=== PATIENT | female | born 1940 | race Caucasian/White ===

== ENCOUNTER 2019-01-26 12:57 | Observation (INO) ==
[2019-01-26 13:51] LABS: Basophils # 0.1 10*3/uL (0.0-0.2); Basophils % 0.9 % (0.0-0.8); Eosinophils # 0.2 10*3/uL (0.0-0.87); Eosinophils % 2.4 % (0.00-10.9); Hematocrit 41.5 VOL% (35.7-47.0); Hemoglobin 13.9 GM/DL (12.0-16.0); Immature Granulocytes % 0.3 %; Immature Granulocytes Absolute 0.02 #; Lymphocytes # 2.9 10*3/uL (1.4-4.0); Lymphocytes % 42.8 % (21.3-54.2); Mean Corpuscular HGB Conc 33.5 GM/DL (32-36); Mean Corpuscular Volume 86.3 FL (87-102); Mean Platelet Volume 10.4 FL (9.6-12.0); Monocytes % 10.1 % (1.7-12.7); Neutrophils % 43.5 % (38.7-73.9); Platelet Count 282 T/CUMM (130-400); Red Blood Count 4.81 MC/CUMM (3.8-5.5); Red Cell Distribution Width 13.2 % (9.3-17.3); White Blood Count 6.7 T/CUMM (4-12)
[2019-01-26 14:11] LABS: Albumin 3.6 G/DL (3.4-5.0); Bilirubin,Total 0.5 MG/DL (0.2-1.0); Calcium 9.1 MG/DL (8.5-10.1); Osmolality,Calculated 276.8 MOS/KG (273-304); Total Protein 8.5 G/DL (6.4-8.3)
[2019-01-26] MEDS ORDERED: KETOROLAC 30 MG/1 ML VIAL IV STA (15:51)
[2019-01-26] MEDS ORDERED: NITROGLYCERIN 2% OINT 1 INCH/GM PACK TOP STA (15:51)
[2019-01-26] MEDS ORDERED: POTASSIUM CHLORIDE 20 MEQ TABLET PO STA (15:51)
[2019-01-26] MEDS ORDERED: ASPIRIN 325 MG TABLET PO STA (15:51)
[2019-01-26] MEDS ORDERED: MORPHINE 4 MG/1 ML VIAL IV STA (15:51)
[2019-01-26] MEDS ORDERED: ONDANSETRON 4 MG/2 ML VIAL IV STA (15:51)
[2019-01-26] MEDS ORDERED: ACETAMINOPHEN 325 MG TABLET PO PRN (17:07)
[2019-01-26] MEDS ORDERED: ONDANSETRON 4 MG/2 ML VIAL IV PRN (17:07)
[2019-01-26] MEDS ORDERED: DEXTROSE 10% 25 GM/250 ML BAG IV PRN (17:08)
[2019-01-26] MEDS ORDERED: GLUCAGON 1 MG VIAL IM PRN (17:08)
[2019-01-26] MEDS ORDERED: SODIUM CHLORIDE 0.45% 500 ML IV ONE (19:20)
[2019-01-26] MEDS ORDERED: ALUM/MAG/SIMETH/LIDO VISC 1:1 30 ML BOTTLE PO ONE (19:25)
[2019-01-26] MEDS: GABAPENTIN 300 MG CAPSULE PO SCH (20:48)
[2019-01-26] MEDS ORDERED: EZETIMIBE 10 MG TABLET PO SCH (21:00)
[2019-01-26] MEDS ORDERED: ASPIRIN EC 81 MG TABLET PO SCH (21:00)
[2019-01-26 22:34] LABS: Troponin I < 0.015 NG/ML (0.00-0.045)
[2019-01-27 05:19] LABS: Calcium 8.5 MG/DL (8.5-10.1); Osmolality,Calculated 283.3 MOS/KG (273-304); Risk Ratio 7.13; VLDL CHOLESTEROL 49.8 MG/DL
[2019-01-27 05:23] LABS: Basophils # 0.1 10*3/uL (0.0-0.2); Eosinophils # 0.3 10*3/uL (0.0-0.87); Hematocrit 36.6 VOL% (35.7-47.0); Immature Granulocytes % 0.2 %; Immature Granulocytes Absolute 0.01 #; Lymphocytes # 2.9 10*3/uL (1.4-4.0); Lymphocytes % 55.8 % (21.3-54.2); Mean Corpuscular HGB Conc 32.8 GM/DL (32-36); Mean Corpuscular Volume 88.6 FL (87-102); Mean Platelet Volume 10.8 FL (9.6-12.0); Monocytes % 11.2 % (1.7-12.7); Neutrophils % 26.8 % (38.7-73.9); Platelet Count 242 T/CUMM (130-400); Red Blood Count 4.13 MC/CUMM (3.8-5.5); Red Cell Distribution Width 13.2 % (9.3-17.3); White Blood Count 5.2 T/CUMM (4-12)
[2019-01-27 05:40] LABS: Band Neutrophils 6 % (0-10); Eosinophils 7 % (0-10); Lymphocytes 53 % (20-55); Platelet Estimate Normal; Segmented Neutrophils 26 % (50-85); Total Cells Counted 100
[2019-01-27] MEDS ORDERED: LEVOTHYROXINE 75 MCG TABLET PO SCH (06:30)
[2019-01-27 06:49] LABS: Apearance,Urine CLEAR (Clear); Bacteria,Urine Occasional /HPF (Few); Bilirubin,Urine Negative (Negative); Blood, Urine Negative (Negative); Glucose,Urine (UA) Negative (Negative); Hyaline Casts,Urine 3 /LPF (0-3); Ketones,Urine Negative (Negative); Mucus,Urine Occasional /LPF (Occasional); Nitrite,Urine Negative (Negative); Protein,Urine Negative; RBC,Urine 2 /HPF (0-4); Squamous Epithelial Cell,Urine Occasional /HPF (0-10); Urine Color Yellow (Yellow); Urine Urobilinogen < 2.0 EU/DL (0.2-1.0); WBC,Urine <1 /HPF (0-6)
[2019-01-27] MEDS: GABAPENTIN 300 MG CAPSULE PO SCH ×2 (08:55→09:10)
[2019-01-27] MEDS ORDERED: hydroCHLOROthiazide 25 MG TABLET PO SCH (09:00)
[2019-01-27] MEDS ORDERED: SERTRALINE 25 MG TABLET PO SCH (09:00)
[2019-01-27] MEDS ORDERED: OXYBUTYNIN XL 15 MG TABLET PO SCH (09:00)
[2019-01-27] MEDS ORDERED: PANTOPRAZOLE 40 MG TABLET PO SCH (09:00)
[2019-01-27] MEDS ORDERED: amLODIPine 10 MG TABLET PO SCH (09:00)
[2019-01-27] MEDS ORDERED: CALCIUM (CARBONATE)/VITAMIN D 600 MG-400 UNIT TABLET PO SCH (09:00)
[2019-01-27] MEDS ORDERED: ACETAMINOPHEN 325 MG/10.15 ML UDCUP PO ONE (10:21)
[2019-01-27] MEDS ORDERED: traMADol 50 MG TABLET PO SCH (10:30)
[2019-01-27 11:28] VITALS: BP 124/47
[2019-01-27] MEDS ORDERED: GABAPENTIN 100 MG CAPSULE PO SCH (15:00)
[2019-01-27] MEDS ORDERED: ROSUVASTATIN 10 MG TABLET PO SCH (21:00)
[2019-01-27] MEDS ORDERED: ACETAMINOPHEN 325 MG/10.15 ML UDCUP PO SCH (21:00)
== END 2019-01-27 13:17 | disposition home or self-care (01) ==
LOC: N.EDINP 12:57 → N.ED 12:57 → SUATTDRO 17:06 → N.2W 18:15 → N.EDINP 18:25
PROVIDERS: ADMIT Internal Medicine; ATTEND Internal Medicine

== ENCOUNTER 2021-05-22 10:54 | Observation (INO) ==
[2021-05-22 12:17] LABS: Basophils % 0.2 % (0.0-0.8); Eosinophils # 0.4 10*3/uL (0.0-0.87); Hematocrit 43.3 VOL% (35.7-47.0); Hemoglobin 14.1 GM/DL (12.0-16.0); Immature Granulocytes % 1.1 %; Immature Granulocytes Absolute 0.14 #; Lymphocytes # 4.2 10*3/uL (1.4-4.0); Lymphocytes % 34.2 % (21.3-54.2); Mean Corpuscular HGB Conc 32.6 GM/DL (32-36); Mean Corpuscular Volume 90.8 FL (87-102); Mean Platelet Volume 9.4 FL (9.6-12.0); Monocytes % 5.6 % (1.7-12.7); Neutrophils % 55.9 % (38.7-73.9); Platelet Count 325 T/CUMM (130-400); Red Blood Count 4.77 MC/CUMM (3.8-5.5); Red Cell Distribution Width 13.2 % (9.3-17.3); White Blood Count 12.3 T/CUMM (4-12)
[2021-05-22 12:18] LABS: Bacteria,Urine Occasional /HPF (Few); Bilirubin,Urine Negative (Negative); Blood, Urine Negative (Negative); Glucose,Urine (UA) Negative (Negative); Ketones,Urine Negative (Negative); Nitrite,Urine Negative (Negative); Protein,Urine 1+ mg/dL (Negative); RBC,Urine 2 /HPF (0-4); Squamous Epithelial Cell,Urine Occasional /HPF (0-10); Urine Appearance Clear (Clear); Urine Color Yellow (Yellow); Urine Urobilinogen 0.2 eU/dL (<2.0)
[2021-05-22 12:35] LABS: Albumin 2.7 G/DL (3.4-5.0); Bilirubin,Total 1.4 MG/DL (0.20-1.00); Calcium 8.5 MG/DL (8.5-10.1); Osmolality,Calculated 285.4 MOS/KG (273-304); Potassium 4.1 MMOL/L (3.5-5.1); Total Protein 7.3 G/DL (6.4-8.2)
[2021-05-22] MEDS ORDERED: ONDANSETRON 4 MG/2 ML VIAL IV STA (14:10)
[2021-05-22] MEDS ORDERED: HYDROmorphone 2 MG/1 ML VIAL IV STA (14:10)
[2021-05-22] MEDS ORDERED: GLUCAGON 1 MG VIAL IM PRN (14:25)
[2021-05-22] MEDS ORDERED: DEXTROSE 10% 250 ML BAG IV PRN (14:35)
[2021-05-22] MEDS ORDERED: HYDROmorphone 1 MG/1 ML SYRINGE IV STA (14:58)
[2021-05-22] MEDS ORDERED: guaiFENesin/DM ER 600-30 MG TABLET PO PRN (15:10)
[2021-05-22] MEDS ORDERED: hydrALAZINE 20 MG/1 ML VIAL IV PRN (16:52)
[2021-05-22] MEDS: SODIUM CHLORIDE 0.45% 1,000 ML IV SCH (17:19)
[2021-05-22 17:30] LABS: Risk Ratio 3.38; Thyroid Stimulating Hormone 11.5 uIU/ml (0.358-3.74); VLDL Cholesterol 56.8 MG/DL
[2021-05-22] MEDS: predniSONE 20 MG TABLET PO SCH (21:23)
[2021-05-22] MEDS: ROSUVASTATIN 10 MG TABLET PO SCH (21:23)
[2021-05-22] MEDS: GABAPENTIN 100 MG CAPSULE PO SCH (21:23)
[2021-05-22] MEDS: EZETIMIBE 10 MG TABLET PO SCH (21:23)
[2021-05-22] MEDS: ASPIRIN EC 81 MG TABLET PO SCH (21:23)
[2021-05-23] MEDS: SODIUM CHLORIDE 0.45% 1,000 ML IV SCH (06:02)
[2021-05-23 06:04] LABS: Basophils % 0.4 % (0.0-0.8); Eosinophils % 0.3 % (0.00-10.9); Hematocrit 39.9 VOL% (35.7-47.0); Immature Granulocytes % 1.2 %; Immature Granulocytes Absolute 0.09 #; Lymphocytes # 1.1 10*3/uL (1.4-4.0); Lymphocytes % 13.5 % (21.3-54.2); Mean Corpuscular HGB Conc 32.6 GM/DL (32-36); Mean Corpuscular Volume 91.3 FL (87-102); Mean Platelet Volume 9.5 FL (9.6-12.0); Monocytes % 1.9 % (1.7-12.7); Neutrophils % 82.7 % (38.7-73.9); Platelet Count 295 T/CUMM (130-400); Red Blood Count 4.37 MC/CUMM (3.8-5.5); Red Cell Distribution Width 13.2 % (9.3-17.3); White Blood Count 7.8 T/CUMM (4-12)
[2021-05-23 06:16] LABS: Albumin 2.2 G/DL (3.4-5.0); Bilirubin,Total 0.4 MG/DL (0.20-1.00); Calcium 8.4 MG/DL (8.5-10.1); Osmolality,Calculated 279.1 MOS/KG (273-304); Potassium 4.7 MMOL/L (3.5-5.1); Total Protein 6.3 G/DL (6.4-8.2)
[2021-05-23 08:33] LABS: Free T4 (Free Thyroxine) 0.99 NG/DL (0.76-1.46)
[2021-05-23] MEDS ORDERED: LEVOTHYROXINE 75 MCG TABLET PO SCH (09:00)
[2021-05-23 09:14] LABS: Hepatitis B Surface Ag Quant < 0.10 Index; Hepatitis B Surface Ag Result Non-Reactive (NonReactive); Hepatitis C Virus Ab Quant 0.06 Index; Hepatitis C Virus Ab Result Non-Reactive (NonReactive)
[2021-05-23] MEDS: predniSONE 20 MG TABLET PO SCH ×2 (10:04→20:48)
[2021-05-23] MEDS: PANTOPRAZOLE 40 MG TABLET PO SCH (10:05)
[2021-05-23] MEDS: GABAPENTIN 100 MG CAPSULE PO SCH ×3 (10:05→20:48)
[2021-05-23] MEDS: LOSARTAN 50 MG TABLET PO SCH (10:05)
[2021-05-23] MEDS: CHOLECALCIFEROL 5,000 UNIT TABLET PO SCH (10:05)
[2021-05-23] MEDS: allopurinoL 100 MG TABLET PO SCH (10:05)
[2021-05-23] MEDS: SERTRALINE 25 MG TABLET PO SCH (10:05)
[2021-05-23] MEDS: amLODIPine 2.5 MG TABLET PO SCH (10:07)
[2021-05-23] MEDS ORDERED: LIDOCAINE 2% 5 ML VIAL ONE (10:47)
[2021-05-23] MEDS ORDERED: propofoL 200 MG/20 ML VIAL IV ONE (10:47)
[2021-05-23] MEDS ORDERED: KETAMINE 500 MG/10 ML VIAL ONE (10:48)
[2021-05-23] MEDS ORDERED: MIDAZOLAM 2 MG/2 ML VIAL ONE (10:48)
[2021-05-23] MEDS ORDERED: fentaNYL 100 MCG/2 ML VIAL ONE (10:48)
[2021-05-23] MEDS ORDERED: ROPIVACAINE 0.5% 30 ML VIAL ONE (10:52)
[2021-05-23] MEDS ORDERED: TISSUE ADHESIVE 1 EACH APPLICATOR TOP ONE (10:52)
[2021-05-23] MEDS ORDERED: LACTATED RINGERS 1,000 ML IV SCH (11:30)
[2021-05-23] MEDS ORDERED: ceFAZolin 2,000 MG/50 ML DUPLEX IV ONE (11:30)
[2021-05-23] MEDS ORDERED: hydrALAZINE 20 MG/1 ML VIAL IV ONE (12:30)
[2021-05-23] MEDS ORDERED: LABETALOL 20 MG/4 ML SYRINGE IV ONE (12:31)
[2021-05-23] MEDS ORDERED: MEPERIDINE 25 MG/1 ML VIAL IV PRN (12:36)
[2021-05-23] MEDS ORDERED: HYDROmorphone 1 MG/1 ML SYRINGE ONE (12:36)
[2021-05-23] MEDS ORDERED: ONDANSETRON 4 MG/2 ML VIAL IV PRN (12:36)
[2021-05-23] MEDS ORDERED: HYDROmorphone 1 MG/1 ML SYRINGE IV PRN (12:36)
[2021-05-23] MEDS ORDERED: ONDANSETRON 4 MG/2 ML VIAL ONE (12:37)
[2021-05-23] MEDS: ASPIRIN EC 81 MG TABLET PO SCH (20:48)
[2021-05-23] MEDS: EZETIMIBE 10 MG TABLET PO SCH (20:48)
[2021-05-23] MEDS: ROSUVASTATIN 10 MG TABLET PO SCH (20:48)
[2021-05-24] MEDS ORDERED: LEVOTHYROXINE 100 MCG TABLET PO SCH (06:30)
[2021-05-24 07:48] VITALS: BP 160/63
[2021-05-24 08:28] LABS: Calcium 8.7 MG/DL (8.5-10.1); Osmolality,Calculated 287.7 MOS/KG (273-304); Potassium 4.4 MMOL/L (3.5-5.1)
[2021-05-24] MEDS ORDERED: CALCIUM (CARBONATE) 600 MG TABLET PO SCH (09:00)
[2021-05-24] MEDS: amLODIPine 2.5 MG TABLET PO SCH (09:42)
[2021-05-24] MEDS: LOSARTAN 50 MG TABLET PO SCH (09:42)
[2021-05-24] MEDS: PANTOPRAZOLE 40 MG TABLET PO SCH (09:42)
[2021-05-24] MEDS: CHOLECALCIFEROL 5,000 UNIT TABLET PO SCH (09:43)
[2021-05-24] MEDS: predniSONE 20 MG TABLET PO SCH (09:43)
[2021-05-24] MEDS: allopurinoL 100 MG TABLET PO SCH (09:43)
[2021-05-24] MEDS: GABAPENTIN 100 MG CAPSULE PO SCH (09:43)
[2021-05-24] MEDS: SERTRALINE 25 MG TABLET PO SCH (09:43)
[2021-05-24] MEDS ORDERED: CALCIUM (CARBONATE) 500 MG TABLET PO SCH (10:00)
== END 2021-05-24 11:26 | disposition home health service (06) ==
LOC: EDUNIT# → N.ED 10:54 → N.5E 10:54
PROVIDERS: ADMIT Internal Medicine; ATTEND Internal Medicine